=== PATIENT | male | born 1995 | race Caucasian/White ===

== ENCOUNTER 2018-04-05 00:05 | Emergency (ER) | payer MEDICAID ==
[~2018-04-05] VITALS: Ht 172.7 cm; Wt 63.5 kg
[2018-04-05 00:40] VITALS: BP_SYST 147
[2018-04-05] MEDS ORDERED: FEXO180T94 PO (00:47)
[2018-04-05] MEDS ORDERED: CEPHALEXIN 500 MG CAPSULE PO ONE (02:45)
[2018-04-05 03:10] VITALS: BP_SYST 130
== END 2018-04-05 03:10 | disposition home or self-care (01) ==
LOC: SED 00:05
DX: L03.211 Cellulitis of face (principal); R03.0 Elevated blood-pressure reading, without diagnosis of hypertension
CPT/HCPCS: 70486-TC; 99284